=== PATIENT | male | born 1980 | race Caucasian/White ===

== ENCOUNTER 2022-06-15 07:31 | Emergency (ER) | payer OTHER ==
[2022-06-15 07:34] VITALS: TEMP 98.5
[2022-06-15 11:23] VITALS: BP 117/66; PULSE 62
== END 2022-06-15 11:24 | disposition home or self-care (01) ==
LOC: COL.ER 07:31
DX: S61.411A Laceration without foreign body of right hand, initial encounter (principal); S60.811A Abrasion of right wrist, initial encounter; F17.200 Nicotine dependence, unspecified, uncomplicated; Z23 Encounter for immunization; Z28.310 Unvaccinated for COVID-19; W20.8XXA Other cause of strike by thrown, projected or falling object, initial encounter; Y92.59 Other trade areas as the place of occurrence of the external cause; Y99.0 Civilian activity done for income or pay

== ENCOUNTER 2022-06-22 10:07 | Emergency (ER) | payer OTHER ==
[~2022-06-22] VITALS: Ht 152.4 cm; Wt 72.7 kg
[2022-06-22 10:30] VITALS: TEMP 97.7
[2022-06-22] MEDS ORDERED: CEPHALEXIN500 M1 PO (12:40)
[2022-06-22] MEDS ORDERED: NORCO 325 MG-51 TAB PO (12:40)
[2022-06-22 12:55] VITALS: BP 115/68; PULSE 50
== END 2022-06-22 12:55 | disposition home or self-care (01) ==
LOC: COL.ER 10:07
DX: S61.401A Unspecified open wound of right hand, initial encounter (principal); M79.89 Other specified soft tissue disorders; F17.200 Nicotine dependence, unspecified, uncomplicated; Z28.310 Unvaccinated for COVID-19; W23.1XXA Caught, crushed, jammed, or pinched between stationary objects, initial encounter